=== PATIENT | female | born 2005 | race Caucasian/White ===

== ENCOUNTER 2024-05-22 13:29 | Emergency (ER) | payer MEDICAID ==
[~2024-05-22] VITALS: Ht 157.5 cm; Wt 86.0 kg
[2024-05-22 13:32] VITALS: O2SAT 99
[2024-05-22] MEDS: HYDROCODONE/ACETAMINOPHEN 5/325MG TABLET PO ONE (14:40)
[2024-05-22] MEDS ORDERED: IBUP-2029 MT (15:31)
[2024-05-22 15:39] VITALS: BP 118/73; PULSE 81; RESP 16; TEMP 98.4
== END 2024-05-22 15:40 | disposition home or self-care (01) ==
LOC: ER 13:29
DX: S06.0X0A Concussion without loss of consciousness, initial encounter (principal); Z91.048 Other nonmedicinal substance allergy status; Z88.8 Allergy status to other drugs, medicaments and biological substances; Y93.18 Activity, surfing, windsurfing and boogie boarding; Y93.89 Activity, other specified; Y92.89 Other specified places as the place of occurrence of the external cause; Y99.8 Other external cause status
CPT/HCPCS: 81025; 99284